=== PATIENT | female | born 1990 | race Caucasian/White ===

== ENCOUNTER 2017-09-14 01:13 | Emergency (ER) | payer OTHER ==
[~2017-09-14] VITALS: Ht 170.2 cm; Wt 87.8 kg
[2017-09-14 01:15] VITALS: BP 123/81
[2017-09-14] MEDS ORDERED: ACETAMINOPHEN 325 MG TABLET PO ONE (01:30)
[2017-09-14] MEDS ORDERED: DIPH,PERTUSS(ACELL),TET VAC/PF 0.5 ML IM-VACC ONE ×2 (01:30→01:35)
[2017-09-14] MEDS ORDERED: IBUPROFEN 200 MG TABLET PO ONE (01:30)
[2017-09-14] MEDS ORDERED: IBUPROFEN 200 MG TABLET ONE (01:35)
[2017-09-14] MEDS ORDERED: ACETAMINOPHEN 325 MG TABLET ONE (01:35)
[2017-09-14] MEDS ORDERED: BACITRACIN ZINC OINT 500U/GM, 0.9 GM ONE (01:58)
== END 2017-09-14 02:24 | disposition home or self-care (01) ==
LOC: ED 02:00
DX: S02.2XXA Fracture of nasal bones, initial encounter for closed fracture (principal); Y04.0XXA Assault by unarmed brawl or fight, initial encounter; Y93.89 Activity, other specified; Y92.098 Other place in other non-institutional residence as the place of occurrence of the external cause; Y99.8 Other external cause status
CPT/HCPCS: 70160; 90471; 90715; 96372; 99284